=== PATIENT | female | born 1945 | race Asian ===

== ENCOUNTER → 2016-11-30 | Outpatient (CLI) | payer MEDICARE, OTHER ==
[~2016-11-30] MED LIST: ASPIRIN81 M2 PEG; ASPIRIN81 M2 PO; CALCIUM GUMMIE1 EACH PO; CALCIUM500 MG PO; OMEPRAZOLE40 M1 PO; PRILOSEC PO; SUCRALFATE1 G/10 ML PO; VIT E PO; VITAMIN D-32000 UNI2 PO; VITAMIN D3 PO
--- NOTE | ~2016-11-30 | CR150 ---
[facility] A Service of [facility] & [facility] RADIOLOGY TEXT RESULTS PATIENT: LOIS PARADA LOCATION: [facility] : [birth year] UNIT #: [id number] AGE: [address]: Bala Rod MD SEX: F ORDER DR: [id number] [facility] [address]. [place], [place] [address] [id number] O MR#: [id number] Acc #: [id number] NAME: LOIS PARADA : 1945 SEX: F STUDY DATE/TIME: 11/30/2016 11:31 UNIT: [facility] ROOM: STUDY DESCRIPTION: CR Hip Min 2 Views Lt Attending Physician: Bala Rod M.D. Referring Physician: Bala Rod M.D. Ordering Physician: Bala Rod M.D. Primary Care Physician: Bandar Lewis D.O. MEDICAL IMAGING REPORT This report is preliminary unless electronic signature is present EXAM Left hip, 11/30/2016 INDICATION 71-year-old female with pain in the left leg and weakness. History of breast cancer. TECHNIQUE 2 views of the left hip. No comparisons FINDINGS There is mild degenerative change of the left hip. No acute fracture. No suspicious bone lesion. IMPRESSION Mild degenerative change of the left hip, otherwise negative. Dictated by... Blue Wei M.D. THIS IS AN ELECTRONICALLY VERIFIED REPORT Blue Wei M.D. at 12/01/2016 7:43 AM Jazmyne TD: 11/30/2016 21:28 JOB #: [id number] MEDICAL IMAGING REPORT COPY
--- NOTE | ~2016-11-30 | CR181 ---
[facility] A Service of [facility] & [facility] RADIOLOGY TEXT RESULTS PATIENT: LOIS PARADA LOCATION: [facility] : 47 UNIT #: [id number] AGE: [address]: Bala Rod MD SEX: F ORDER DR: [id number] [facility] [address]. [place], [place] [address] [id number] O MR#: [id number] Acc #: [id number] NAME: LOIS PARADA : 1945 SEX: F STUDY DATE/TIME: 11/30/2016 11:30 UNIT: [facility] ROOM: STUDY DESCRIPTION: CR Lumbar Spine 2 or 3 Views Attending Physician: Bala Rod M.D. Referring Physician: Bala Rod M.D. Ordering Physician: Bala Rod M.D. Primary Care Physician: Bandar Lewis D.O. MEDICAL IMAGING REPORT This report is preliminary unless electronic signature is present EXAM Lumbar series, 11/30/2016 INDICATIONS 71-year-old female with left hip and lumbar spine pain. Pain and weakness in the left leg. History of breast cancer. TECHNIQUE 3 views of the lumbar spine. No comparisons. FINDINGS Vertebral body heights and alignment are preserved. No acute fracture. There is mild degenerative disc disease at L5-S1 and mild facet arthropathy at L4-5 and L5-S1. IMPRESSION 1. Mild degenerative changes, otherwise, negative. Dictated by... Blue Wei M.D. THIS IS AN ELECTRONICALLY VERIFIED REPORT Blue Wei M.D. at 12/01/2016 7:43 AM TERE/socrates TD: 11/30/2016 21:06 JOB #: [id number] MEDICAL IMAGING REPORT COPY
== END | disposition home or self-care (01) ==
LOC: CRAD 11:18
DX: M25.551 Pain in right hip (principal); M54.5 Low back pain; R53.1 Weakness; Z85.3 Personal history of malignant neoplasm of breast; M47.816 Spondylosis without myelopathy or radiculopathy, lumbar region; M16.12 Unilateral primary osteoarthritis, left hip
CPT/HCPCS: 72100; 73502

== ENCOUNTER → 2016-12-08 | Outpatient (CLI) | payer MEDICARE, OTHER ==
--- NOTE | ~2016-12-08 | US128 ---
[id number] [facility] [address]. [place], [place] [address] [id number] O MR#: [id number] [facility] #: [id number] NAME: LOIS PARADA : 1945 SEX: F STUDY DATE/TIME: 12/08/2016 14:41 UNIT: [facility] ROOM: STUDY DESCRIPTION: Thyroid Attending Physician: Jarrell Urrutia M.D. Ordering Physician: Jarrell Urrutia M.D. Primary Care Physician: Bandar Lewis D.O. MEDICAL IMAGING REPORT This report is preliminary unless electronic signature is present EXAM Thyroid ultrasound INDICATIONS Difficulty swallowing since August 2016. TECHNIQUE Carlos-scale and color Doppler sonographic images were obtained through the thyroid gland. FINDINGS Right lobe measures 3.2 x 1.0 x 1.1 cm, left lobe measures 3.5 x 1.0 x 1.0 cm, isthmus measures about 2 mm in thickness. The patient is noted to have a probable cyst within the right lobe of the thyroid gland measuring 3 x 2 x 3 mm. Overall, I think thyroid parenchyma is fairly heterogeneous. No definite discrete nodules are seen within the left lobe of the thyroid gland. There is a cystic-appearing structure which is seen inferior to the left lobe of the thyroid gland. It is hypoechoic in appearance with some increased through-transmission and there is no color Doppler flow within it and may reflect some sort of cyst. IMPRESSION Overall heterogeneous thyroid parenchyma. Patient is suspected to have a small cyst within the right lobe of the thyroid gland, but no definite solid nodules are appreciated. Dictated by... Emily Gonsalez M.D. THIS IS AN ELECTRONICALLY VERIFIED REPORT Emily Gonsalez M.D. at 12/09/2016 4:19 PM AFF/psc TD: 12/08/2016 21:24 JOB #: [id number] MEDICAL IMAGING REPORT COPY
--- NOTE | ~2016-12-08 | CT114 ---
[facility] A Service of [facility] RADIOLOGY TEXT RESULTS PATIENT: LOIS PARADA LOCATION: [facility] : 46 UNIT #: [id number] AGE: [address]: Jarrell Urrutia MD SEX: F ORDER DR: [id number] [facility] [address] [place], [place] [address] [id number] O MR#: [id number] Acc #: [id number] NAME: LOIS PARADA. : 1945 SEX: F STUDY DATE/TIME: 12/08/2016 15:21 UNIT: [facility] ROOM: STUDY DESCRIPTION: CT Soft Tissue Neck W Cont Attending Physician: Jarrell Urrutia M.D. Ordering Physician: Jarrell Urrutia M.D. Primary Care Physician: Bandar Lewis D.O. MEDICAL IMAGING REPORT This report is preliminary unless electronic signature is present EXAM Soft tissue neck CT with contrast. DATE OF EXAM 12/08/2016 COMPARISON 09/10/ CLINICAL HISTORY Persistent dysphagia, history of connective tissue disorder. Symptoms since August 22, 2016. TECHNIQUE NOTE: This CT exam was performed with one or more of the following radiation dose reduction techniques: automatic exposure control, adjustment of mA and/or kV according to patient size, and iterative reconstruction. FINDINGS The base of the brain is unremarkable. The parotid and submandibular salivary glands are slightly hyperdense and hyperenhancing. In the lower cervical soft tissues, there is extensive fat plane obscuration and linear infiltration clearly worsened since the prior study. In the upper mediastinum, similar changes are seen also showing progression since the prior study. The esophagus is fairly uniformly thickened. There is no abnormal fluid collection. There are mildly prominent mediastinal lymph nodes slightly increased since the prior study. There is severe attenuation of, but not occlusion of the left internal jugular vein. The carotid bifurcations appear normal as to the upper cervical internal carotids. The orbital soft tissues are unremarkable. [facility] A Service [facility] RADIOLOGY TEXT RESULTS PATIENT: LOIS PARADA LOCATION: [facility] : [birth year] UNIT #: [id number] AGE: [address]: Jarrell Urrutia MD SEX: F ORDER DR: There is a large right pleural effusion. There is some spinal degenerative change but no bone erosion or destruction. IMPRESSION 1. Findings show progression since the CT examination of 09/10/2016. Persistent lower cervical and mediastinal linear fatty infiltration and obscuration of fat planes and thickening of the esophagus. There is attenuation of, but not occlusion of the left internal jugular vein. It is probably not substantially changed since the prior study. 2. There is no discrete mass, and while the esophagus is thickened. There is no evidence of abnormal discrete fluid collection or air collection to suggest any form of perforation. 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 3. There is a large right pleural effusion but the lung apices are otherwise normal. Dictated by... Jim Scott M.D. THIS IS AN ELECTRONICALLY VERIFIED REPORT Jim Scott M.D. at 12/13/2016 5:05 PM KAE/rigoberto TD: 12/10/2016 19:03 JOB #: [id number] MEDICAL IMAGING REPORT COPY
[2016-12-08 15:43] LABS: POC - CREATININE 0.74 mg/dL (0.44-1.03); POC - GFR >60.0 mL/min (>60)
== END | disposition home or self-care (01) ==
LOC: CCAT 14:06
PROVIDERS: Surgery
DX: R13.10 Dysphagia, unspecified (principal); K22.8 Other specified diseases of esophagus; J90 Pleural effusion, not elsewhere classified
CPT/HCPCS: 70491; 76536; 82565; Q9967

== ENCOUNTER 2016-12-31 16:29 | Inpatient (IN) | payer MEDICARE, OTHER ==
--- NOTE | ~2016-12-31 | DS ---
Unit #: [id number] #: [id number] Patient: LOIS PARADA [id number] [facility] [address]. [place], [place] [address] [id number] I MR#: [id number] NAME: LOIS PARADA. ROOM: 469 Age: 72 Sex: F Admission Date: 12/31/2016 : 1945 Discharge Date: 01/08/2017 Attending Physician: Twan Chaney M.D. Primary Care Physician: Bandar Lewis D.O. DISCHARGE SUMMARY DISCHARGE DIAGNOSES 1. Dysphagia status post percutaneous gastrostomy tube placement. 2. Constipation. 3. Postop urinary retention. 4. Strep throat. HOSPITAL COURSE The patient is a 71-year-old female who presented to [facility] secondary to some trouble swallowing. The patient had an EGD on 10/07/16 by [facility] that showed some esophageal stenosis. She had dilatation and was found to have some hardness to her esophagus and so a referral was placed to Dr. Urrutia. EGD on 11/18/16 showed thickening of her esophagus which was concerning for possible scleroderma. She apparently had some difficulty with getting an appointment with Rheumatology and represented to the emergency department with dysphagia and was completely unable to eat or drink anything. The patient was seen by [facility] and taken for PEG placement given her inability to eat. She was maintained briefly on TPN but is now tolerating tube feeds without difficulty. Laboratories regarding her rheumatologic diagnosis have been sent but are pending. The patient had some postop urinary retention and complained of dysuria. Placement of a Piper revealed 800 mL of urine retained despite a bladder scan showing only 84. The patient was seen by Urology and is being discharged home with a Piper and followup. During a workup in the emergency department, the patient was swabbed and noted to be strep positive and has been treated with Rocephin during this stay. Additionally, the patient had some problems with constipation which have now resolved. She had a bowel movement the morning of discharge. DISCHARGE MEDICATIONS 1. Aspirin 81 mg daily per PEG tube. 2. Tube feeds. FOLLOWUP The patient should follow up with Dr. Jarrell Urrutia on 01/13/17 at 3 p.m. Dictated by... Twan Chaney M.D. Unit #: [id number] #: [id number] Patient: LOIS PARADA SOPHIA/janna TD: 01/10/2017 07:45 JOB #: [id number] DISCHARGE SUMMARY Page 1 of 1 X Twan Chaney MD X DISCHARGE SUMMARY
--- NOTE | ~2016-12-31 | CO ---
Unit #: [id number] #: [id number] Patient: LOIS PARADA [id number] [address] [place], [place] [address] [id number] I MR#: [id number] NAME: LOIS PARADA ROOM: 469 Age: 72 Sex: F Admission Date: 12/31/2016 : 1945 Attending Physician: Twan Chaney M.D. Primary Care Physician: Bandar Lewis D.O. Consultation Date: 01/06/2017 CONSULTATION REPORT REASON FOR CONSULTATION Dysuria. HISTORY OF PRESENT ILLNESS This 71-year-old woman who had an open gastrostomy tube placed 2 days ago and she has developed a complaint of dysuria. Urinalysis is normal. Bladder scan failed to show large residual. On the other hand, abdominal examination showed obvious tender bladder distention despite the patient's discordant history. With further questioning, she has been having small frequent urinations today. She has never had urologic problem. She does get up about 3 times at night and has some frequency and urgency, but has never recognize this as a problem. She has large volume voids. No history of gross hematuria or stone disease and has had only 2 urinary tract infections in her life. 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 PAST MEDICAL HISTORY Esophageal stenosis associated with GE reflux, possible scleroderma, history of breast cancer. PAST SURGICAL HISTORY Esophageal dilation, gastrostomy tube, left mastectomy in 1996, cataracts, hysterectomy, colonoscopy. MEDICATIONS Admission medications; omeprazole, vitamin D, low-dose aspirin, calcium, and vitamin E. ALLERGIES Doxycycline caused lip swelling. FAMILY HISTORY Positive for hypertension. SOCIAL HISTORY Negative other than the above. PHYSICAL EXAMINATION GENERAL: The patient is of short stature, lying in bed, alert, relatively Unit #: [id number] #: [id number] Patient: LOIS PARADA comfortable until examination of the lower abdomen reveals tender, distention. /RECTAL: Piper catheter inserted with sterile technique for residual urine of 800 mL of clear yellow urine providing relief. Digital exam normal; post hysterectomy, cervix and uterus surgically absent. No adnexal masses or tenderness. Good support. EXTREMITIES: No edema. NEURO: Intact. DIAGNOSTIC STUDIES LABORATORY RESULTS: Normal urinalysis. Creatinine 0.7. IMPRESSION 1. Postoperative urinary retention with no clear pre-existing voiding difficulties. 2. Acute bladder distention best treated with ideally 3 days of bladder drainage. PLAN We will recommend she be discharged with her catheter to remove it at home herself Tuesday and to follow up with us on an as-needed basis. Thank you, Dr. Trent, for the consultation. Dictated by... Bandar Vines M.D. CEDRICK/samuel TD: 01/07/2017 00:45 JOB #: [id number] CONSULTATION REPORT Page 1 of 1 X Bandar Vines MD X CONSULTATION REPORT
--- NOTE | ~2016-12-31 | CO ---
Unit #: [id number] #: [id number] Patient: LOIS PARADA [id number] [address] [place], [place] [address] [id number] I MR#: [id number] NAME: LOIS PARADA. ROOM: 469 Age: 71 Sex: F Admission Date: 12/31/2016 : 1945 Attending Physician: Twan Chaney M.D. Primary Care Physician: Bandar Lewis D.O. Consultation Date: 01/03/2017 CONSULTATION REPORT REASON FOR CONSULTATION Evaluate for possible gastrostomy tube. HISTORY OF PRESENT ILLNESS Thank you very much for asking us to see Ms. Parada. She is a 71-year-old female who has a history of carcinoma of the left breast status post left mastectomy in 1996 and a history of acid reflux. She has a history of worsening dysphagia. She had upper endoscopy performed on October [address] Kraft. She was found to have esophageal stenosis and had dilatation for 5 to 10 cm segment. She was referred to Dr. Jarrell Urrutia of thoracic surgery. Repeat upper endoscopy on 11/18/2016 revealed the patient to have thickening of her upper esophagus. It was felt that she may have some sort of intrinsic esophageal wall pathology. She was scheduled to see a cup trimming machine operator/unit aide tech but has not been seen yet. The patient has had worsening dysphagia. Before she only had problems with solids. Now she has problems with solids and liquids. She has trouble with her own saliva. She presents at this time for further evaluation. PAST MEDICAL HISTORY 1. Progressive dysphagia. 2. GERD. 3. History of left breast cancer. PAST SURGICAL HISTORY 1. Left mastectomy. 2. Hysterectomy. 3. Left cataract surgery. 4. Colonoscopy. 5. D/C. 6. EGD. SOCIAL HISTORY No tobacco or alcohol use. ALLERGIES Doxycycline. MEDICATIONS Please see med rec sheet. FAMILY HISTORY Hypertension. Unit #: [id number] #: [id number] Patient: LOIS PARADA REVIEW OF SYSTEMS Negative except for above. IMMUNIZATIONS Status unknown. PHYSICAL EXAMINATION GENERAL APPEARANCE: Well-developed, well-nourished female in no apparent distress. NECK: Supple. No thyromegaly or adenopathy. BACK: No CVA or spinous tenderness. ABDOMEN: Flat, soft, nontender. DIAGNOSTIC STUDIES LABORATORY: CMP is normal. White count 5.6, with a hemoglobin of 11.5 and hematocrit 35.2, platelet count is 236,000. IMPRESSION A 71-year-old female with progressive dysphagia. She needs a gastrostomy tube for nutritional support and bypass feeds. We have discussed the case with Dr. Kraft and he will proceed with upper endoscopy, possible PEG tube placement, possible open gastrostomy tube placement. All the risks and benefits have been fully explained to the patient in detail including the risk of bleeding, infection, esophageal or gastric perforation, intraabdominal injury, , transfer, additional surgery and other risks. She understands and requests that Dr. Kraft proceed. Dictated by... Karan Bates M.D. EDI/latisha TD: 01/03/2017 16:35 JOB #: [id number] CC: [facility] Jarrell Urrutia M.D. CONSULTATION REPORT Page 1 of 1 X Karan Bates MD X CONSULTATION REPORT
--- NOTE | ~2016-12-31 | CR63 ---
[facility] A Service of [facility] & [facility] RADIOLOGY TEXT RESULTS PATIENT: LOIS PARADA LOCATION: [place] [address] : [birth year] UNIT #: [id number] AGE: [address]: Twan Chaney MD SEX: F ORDER DR: [id number] [facility] [address] [place], [place] [address] [id number] I MR#: [id number] Acc #: [id number] NAME: LOIS PARADA : 1945 SEX: F STUDY DATE/TIME: 01/06/2017 7:42 UNIT: [facility] ROOM: [facility], [facility] STUDY DESCRIPTION: CR Chest 2 View Attending Physician: Twan Chaney M.D. Ordering Physician: Migdalia Cortes A.P.R.N. Primary Care Physician: Bandar Lewis D.O. MEDICAL IMAGING REPORT This report is preliminary unless electronic signature is present EXAM Chest, PA and lateral, 01/06/2017. HISTORY Shortness of breath and cough since 12/31/2016. Follow up right pleural effusion. History of left breast carcinoma and mastectomy. FINDINGS The cardiac and mediastinal structures are stable compared with 01/05/2017. Right arm approach PICC line is unchanged. Right pleural effusion with infiltrate or atelectasis right lower lobe unchanged. The lungs are otherwise clear. No pneumothorax. IMPRESSION No interval change compared with 01/05/2017. Dictated by... Kashmir Fernandez M.D. THIS IS AN ELECTRONICALLY VERIFIED REPORT Kashmir Fernandez M.D. at 01/07/2017 8:04 AM EMILY/sudhir TD: 01/06/2017 09:49 JOB #: [id number] MEDICAL IMAGING REPORT Page 1 of 1 COPY
--- NOTE | ~2016-12-31 | FU ---
[facility] Nutrition Therapy DATE: 01/06/17 Patient: LOIS F TAL Physician: MOISESPRAN Address: [address] [place] [address] Room/Bed: [address] [place] [address], Zip: [place] [address] Admit Date: 12/31/16 Date of : [birth year] Height: 4 8 Weight: 93 42.5 NUTRITION MONITORING/FOLLOW-UP: Reason: TF Follow-up Anthropometrics: Ht: 4'8" Adm wt: 42.3 kg (93#) BMI: 20.9 *No current wt in [employer] Labs: Gluc 121, POC 149 Meds: Phenergan, Protonix, Novolog I&O's: 5474/3920, last BM 12/29 Skin: Dry skin (generalized), closed surgical incision (mid/R abd) Edema: Abd (generalized) Estimated Nutrition Needs: 6261-9523 kcal (25-30 kcal/kg) 51-63 g protein (1.2-1.5 g/kg) Assessment: Chart reviewed, events noted. Pt reports feeling weak today. Per surgery note, TPN has been d/c'd and had PEG placement 01/04/17. Enteral nutiriton was initiated yesterday (01/05/17). Pt is currently receiving enteral nutrition with Jevity 1.5 at goal of 35 mL/hr. Per pump history, pt received 65% of goal volume x 24 hrs. Per surgery, pt is tolerating enteral nutrition. See recommendations below. Dx: Swallowing difficulty RT PMH, current clinical condition AEB dysphagia, need for alternative nutrition support. -ACTIVE Intervention: 1. Enteral nutriton 2. TPN d/c'd Monitoring, Evaluation and Goals: 1. Enteral nutrition; provide >80% of estimated needs and goal volume x 24 hrs 2. Weight; prevent unintentional weight loss 3. Labs; WNL: gluc Recommendations: 1. Continue enteral nutrition with Jevity 1.5 @ goal rate of 35 mL/hr. This will provide 1260 kcal/ 54 g protein/ 638 mL free H2O. Continue free h20 flushes per [facility] Nutrition Therapy DATE: 01/06/17 Patient: LOIS PARADA Physician: MOISESPRAN Address: [address] [place] [address] Room/Bed: [facility] [place] [address], Zip: [place] [address] Admit Date: 12/31/16 Date of : [birth year] Height: 4 8 Weight: 93 42.5 2. Once medically feasible, advance diet per PROGRAM LEAD + 6 small meals. 3. Please obtain weights q 2 days for weight monitoring purposes. 4. Optimize pt's bowel regimen d/t pt's last BM 12/29. Status: Pt is mild-moderate nutritional risk. RD will f/u per protocol. Respectfully, Abby Santana, Carroting Machine Offbearer Tre Butler MS, RD, LD Food and Nutritional Services [facility] cc: client file
--- NOTE | ~2016-12-31 | CR63 ---
[facility] A Service of [facility] & [facility] RADIOLOGY TEXT RESULTS PATIENT: LOIS PARADA LOCATION: [place] [address]- : [birth year] UNIT #: [id number] AGE: [address]: Twan Chaney MD SEX: F ORDER DR: [id number] [facility] [address] [place], [place] [address] [id number] I MR#: [id number] Acc #: [id number] NAME: LOIS PARADA. : 1945 SEX: F STUDY DATE/TIME: 01/02/2017 8:58 UNIT: [facility] ROOM: [facility] STUDY DESCRIPTION: CR Chest 2 View Attending Physician: Tanja Melo M.D. Ordering Physician: Uri Maxwell M.D. Primary Care Physician: Bandar Lewis D.O. MEDICAL IMAGING REPORT This report is preliminary unless electronic signature is present EXAM Two-view chest INDICATION Dysphagia and cough for 5 months. Increasing severity. FINDINGS PA and lateral views of the chest compared to CT chest dated 01/01/2017. There is a right PICC terminating over the SVC. Heart and mediastinal contours are unchanged. There is a small right pleural effusion. No pneumothorax. IMPRESSION Small right pleural effusion is unchanged. Right PICC terminates over the SVC. Dictated by... Ousmane Rodriguez M.D. THIS IS AN ELECTRONICALLY VERIFIED REPORT Ousmane Rodriguez M.D. at 01/03/2017 2:10 PM AMANUEL/wilber TD: 01/02/2017 17:42 JOB #: [id number] MEDICAL IMAGING REPORT Page 1 of 1 COPY
--- NOTE | ~2016-12-31 | A ---
[facility] Nutrition Therapy DATE: 01/03/17 Patient: LOIS Louie TAL Physician: MOISESPRAN Address: [address] [place] [address] Room/Bed: [address] [place] [address], Zip: [place] [address] Admit Date: 12/31/16 Date of : [birth year] Height: 4 8 Weight: 93 42.5 NUTRITIONAL ASSESSMENT: REASON: TPN 71 yo female admitted for dysphagia PMH: dysphagia, GERD, breast cancer, esophegeal stenosis s/p dilation (10/19) Anthropometrics: Ht: 4'8" Wt: 42.3 kg (93#) BMI: 20.9 Labs: Gluc 180, Phos 2.1, POC 140 Meds: Protonix, Novolog, Mg, K, MVI I/O & Bowel function: 1630/901, last BM 12/29 Skin Integrity: Dry skin (generalized) Edema: R hand (generalized) Estimated Nutrition Needs: 8066-7302 kcal (25-30 kcal/kg) 51-63 g protein (1.2-1.5 g/kg) Assessment: Chart reviewed, events noted. Pt has been experiencing dysphagia since 2006. Pt reported being unable to eat or drink since 12/29 (6 days). Pt reports having a good appetite and eating everything before 12/29. Pt states wt loss, but also UBW is ~92-93#. Pt is currently receiving TPN of 25% dextrose, 5% AA @ 40 mL/hr + 20% 250 mL lipids q 72 hrs. TPN is not indicated for this pt d/t functioning GI. PEG may be better for alternative nutrition support. See recommendations below. Dx: Swallowing difficulty RT PMH, current condition AEB dysphagia, need for alternative nutrition support. Intervention: 1. Alternative nutrition support Monitoring, Evaluation and Goals: 1. Alternative nutrition; provide >80% of estimated needs and goal volume x 24 hrs 2. Labs; WNL: gluc 3. Weight; prevent unintentional weight loss Recommendations: [facility] Nutrition Therapy DATE: 01/03/17 Patient: LOIS Louie TAL Physician: KIRSTEN Address: [address] [place] [address] Room/Bed: [address] [place] [address], Zip: [place] [address] Admit Date: 12/31/16 Date of : [birth year] Height: 4 8 Weight: 93 42.5 1. Recommend to d/c TPN. Wean TPN per pt tolerance. 2. Once medically feasible, recommend to place PEG and begin alternative nutrition support of Jevity 1.5 @ 15 mL/hr, increase by 10 mL q 6 hrs to goal rate of 35 mL/hr + 150 mL free H2O flushes q 6 hrs. This will provide: 1260 kcal/ 54 g protein/ 638 mL free H2O. 3. Once dysphagia is resolved, advance diet as tolerated per PROFESSOR OF GRAPHIC DESIGN. Pt is at a moderate nutritional risk. RD will f/u per protocol. Respectfully, Abby Santana, Ticket Sales Agent Tre Butler MS, RD, LD [facility] cc: client file
--- NOTE | ~2016-12-31 | HP ---
Unit #: [id number] #: [id number] Patient: LOIS PARADA [id number] [address] [place], [place] [address] [id number] I MR#: [id number] NAME: LOIS PARADA. ROOM: 91104 Age: 71 Sex: F Admission Date: 12/31/2016 : 1945 Attending Physician: Uri Maxwell M.D. Primary Care Physician: Bandar Lewis D.O. HISTORY AND PHYSICAL CHIEF COMPLAINT Dysphagia. DISCUSSION This is a 71-year-old female who has a history of carcinoma of left breast, status post left mastectomy in 1996, history of acid reflux. She has been having progressive dysphagia. She eventually had an EGD on October 07, 2016 by [facility]. She was found to have esophageal stenosis. She had a dilatation and found to have also hardness between 15 to 20 cm area and then she was given referral to see Dr. Jarrell Urrutia and she had a repeat EGD on 11/18/16 with biopsy and found to have also thickening of upper esophagus. There was suspicion of some rheumatological (1) tissue disease versus the scleroderma. She was also supposed to see Rheumatology but she has not seen so far. She presented to the emergency room with chief complaint of having dysphagia since Tuesday, unable to swallow or eat and she has been admitted for dysphagia though she denied chest pain. She denies nausea and vomiting, fever and chills, cough or other complaint. PAST MEDICAL HISTORY 1. History of progressive dysphagia with history of esophageal stenosis status post dilatation in October 2016. 2. History of narrowing of esophagus, thickening of upper esophagus, upper portion, status post EGD on 11/18/[address] Jarrell Urrutia. 3. History of GERD. 4. History of carcinoma of left breast with previous mastectomy in 1996. PAST SURGICAL HISTORY 1. History of left mastectomy. 2. Hysterectomy. 3. Left cataract surgery. 4. Colonoscopy. 5. D/C. 6. EGD. SOCIAL HISTORY She does not smoke. She does not drink alcohol. No other illicit drug use. ALLERGIES Doxycycline which causes lip swelling. Unit #: [id number] #: [id number] Patient: LOIS PARADA HOME MEDICATIONS Medications from home are followin. Omeprazole 40 mg daily. 2. Vitamin D3 2000 international units daily. 3. Aspirin 81 mg daily. 4. Calcium one tablet daily. 5. Vitamin E one tablet daily. FAMILY HISTORY Father has a history of hypertension, otherwise no history of cancer in the cancer. REVIEW OF SYSTEMS All review of systems negative except as in history of presenting illness. PHYSICAL EXAMINATION GENERAL: On examination middle-aged female lying in the bed comfortably, currently not in any distress. On general examination is alert, awake, oriented x3, comfortable, not in any distress. VITAL SIGNS: Current vitals are following: Temperature 98.2. Heart rate 87. Respiratory rate 16. Blood pressure 143/94. Oxygen 99% on room air. HEENT: On HEENT examination pupils equally react to light and accommodation. Head is normocephalic and atraumatic. NECK: Supple. No JVD. HEART: S1, S2, regular rate and rhythm. ABDOMEN: Soft, nontender and nondistended. Bowel sounds positive. EXTREMITIES: Inspection normal. No cyanosis. No clubbing. No edema. NEUROLOGIC: No focal neurologic deficit. DIAGNOSTIC STUDIES LABORATORY: Workup is following: Sodium 141, potassium 4, chloride 106, glucose 74, BUN 24, creatinine is 1, white count is 6, hemoglobin 13, hematocrit 42, platelet is 294. Flu is negative. Strep is positive. ASSESSMENT AND PLAN 1. Progressive dysphagia with a history of narrowing of esophagus, upper portion. Will do the hematology workup, VINICIUS, anti-VINICIUS and rheumatoid factor and also ask Dr. Jarrell Urrutia to see her. 2. Positive strep: Will place the patient on IV Rocephin. 3. History of acid reflux. 4. History of carcinoma of the left breast with previous left mastectomy. 5. DVT prophylaxis: Will place the patient on Lovenox. Dictated by Nicanor Prasad TD: 12/31/2016 21:57 JOB #: [id number] Unit #: [id number] #: [id number] Patient: LOIS PARADA HISTORY AND PHYSICAL Page 1 of 1 X X HISTORY AND PHYSICAL
--- NOTE | ~2016-12-31 | OR ---
Unit #: [id number] #: [id number] Patient: LOIS PARADA [id number] [address] [place], [place] [address] [id number] I MR#: [id number] NAME: LOIS PARADA ROOM: 469 Date of Procedure: 01/04/2017 Admission Date: 12/31/2016 Surgeon: Nick Kraft Jr., M.D. : 1945 Attending Physician: Twan Chaney M.D. Primary Care Physician: Bandar Lewis D.O. OPERATIVE REPORT INDICATIONS FOR PROCEDURE The patient is a 71-year-old white female, who has developed some severe esophageal stenosis and inflammation in the proximal to mid esophagus, which appears to be benign by biopsies. She has had a known past history for breast cancer. It was felt that in view of the fact she is unable to eat and swallow and actually has problems with her own saliva. It was felt she needed a gastrostomy tube placed. It was felt that an attempt at a percutaneous gastrostomy tube placement would be the best for her and if this was not accomplishable, would convert her to an open gastrostomy. She is brought to the operating room at this time for this procedure. She understands the procedure including the risks, including that of infection, intraabdominal organ injury, leaks and bleeding, and consents. PREOPERATIVE DIAGNOSES Unable to eat, maintain nutrition with severe esophageal stenosis. POSTOPERATIVE DIAGNOSES Unable to eat, maintain nutrition with severe esophageal stenosis, noting significant proximal esophageal stenosis. ANESTHESIA General with endotracheal intubation. PROCEDURES PERFORMED Attempted esophagogastroduodenoscopy with percutaneous endoscopic placed gastrostomy followed by open gastrostomy conversion. DESCRIPTION OF PROCEDURE The patient was positioned in the supine position. After being anesthetized, the Olympus XQ scope was passed in the pharynx and down into the proximal esophagus, there was significant stenosis. A 12 mm balloon dilator was placed and slowly inflated up to 12 mm and there was significant resistance in attempts at moving the dilator once it was inflated. It was deflated. There was no evidence of any perforation or significant bleeding and attempts to again passing the EGD scope were unsuccessful. The scope was removed. The patient was prepped and draped in routine fashion for placement of open gastrostomy. A small paramedian incision was made approximately 3 inches in length and the left upper quadrant was carried down through subcutaneous tissue to the fascia and the anterior rectus sheath was then scored with Bovie cautery. Posterior rectus sheath was then opened with the #10 blade scalpel between 2 hemostats. Upon opening the peritoneal cavity, there was no free Unit #: [id number] #: [id number] Patient: LOIS PARADA intra-abdominal fluid. In this area, two 2-0 silk pursestrings were placed in preparation for placement of gastrostomy tube. A small incision was made in the left lateral abdominal wall area and a Sayda clamp was then passed intraabdominal and then one back extraabdominal to be able to advance the Piper catheter into the abdomen. The tip of the Piper was then grasped and brought in and a gastrotomy was produced with the Bovie cautery and the tip of the tube was placed in the stomach and the pursestrings tied down. The stomach was brought up against the anterior abdominal wall after putting 6 mL of water in the catheter balloon and it was sutured to the anterior abdominal wall with several 2-0 silk sutures as routine with a Randi gastrostomy. After this was complete, the wound was irrigated. There was no evidence of any ongoing bleeding. The G-tube was irrigated and irrigated freely with good return and it was then re-plugged and at this point after hemostasis was again achieved, the posterior rectus sheath was closed with a continuous #1 Vicryl suture, anterior rectus sheath closed with interrupted #1 Vicryl suture. The wound was irrigated and the skin edges were then approximated with stainless-steel skin clips and skin stapling device. Sterile dressings were applied externally. Estimated blood loss less than 50 mL. The patient received less than 1000 mL crystalloid solution during the procedure. Sponges and instruments counts were correct x3. No drains were used. No complications. The patient was taken to the recovery room with stable vital signs in satisfactory condition. Dictated by... Nick Kraft Jr., M.D. JMB/samuel TD: 01/05/2017 00:10 JOB #: [id number] CC: Jarrell Urrutia M.D. OPERATIVE REPORT Page 1 of 1 X Nick Kraft MD PROCEDURE OPERATIVE NOTE
--- NOTE | ~2016-12-31 | CT55 ---
[facility] A Service of [facility] & [facility] RADIOLOGY TEXT RESULTS PATIENT: LOIS PARADA LOCATION: [place] [address] : [birth year] UNIT #: [id number] AGE: [address]: Twan Chaney MD SEX: F ORDER DR: [id number] [facility] [address] [place], [place] [address] [id number] I MR#: [id number] Acc #: [id number] NAME: LOIS PARADA : 1945 SEX: F STUDY DATE/TIME: 01/01/2017 11:53 UNIT: CEDOF ROOM: 21638 STUDY DESCRIPTION: CT Chest W Con Attending Physician: Tanja Melo M.D. Ordering Physician: Jarrell Urrutia M.D. Primary Care Physician: Bandar Lewis D.O. MEDICAL IMAGING REPORT This report is preliminary unless electronic signature is present EXAM CT chest HISTORY Short of air. Dysphagia since 12/30/2016. Prior history of left breast cancer. Thyroid disease. ENT, gastro, left mastectomy, hysterectomy, D and C. TECHNIQUE This CT exam was performed with one or more of the following radiation dose reduction techniques: automatic exposure control, adjustment of mA and/or kV according to patient size, and iterative reconstruction. FINDINGS CT of the chest performed. The patient received 70 mL Isovue 370 intravenously. Comparison 09/10/2016. Somewhat atrophic appearing thyroid. No focal abnormality is seen. No axillary adenopathy. Ill-defined tissue planes in the paratracheal region at thoracic inlet with generalized haziness and tissue hypodensity in the deep space fat. No fluid collection. No abnormal enhancement. Etiology unclear. This may represent chronic change. Similar appearance on a CT of the neck dated 09/10/2016. A component of acute inflammation is not excluded. Please correlate clinically. Right paratracheal dominant node measuring about 1.1 cm in short axis. Similar appearance on prior examination. There are smaller lymph nodes present as well. There is generalized haziness in the superior mediastinal fat and in the fat adjacent to the esophagus throughout its course. No esophageal enhancement. No localized marti esophageal fluid collection or free air. The heart is normal in size. Moderate right pleural effusion. No left pleural effusion, focal fatty infiltration in the liver adjacent to falciform ligament. Stable. Right hepatic lobe segment 8 cyst stable. Visualized gallbladder, spleen, pancreas, adrenal glands, and upper renal poles notable for stable right upper pole renal cyst. No upper abdominal adenopathy. The esophagus is STS. [facility] A Service of [facility] RADIOLOGY TEXT RESULTS PATIENT: LOIS PARADA LOCATION: [facility] 469-01 : [birth year] UNIT #: [id number] AGE: [address]: Twan Chaney MD SEX: F ORDER DR: diffusely abnormal. Diffuse esophageal wall thickening. This appears even more pronounced than on the study from 09/10/2016. Esophageal wall measures up to about 8.0 mm in thickness and as noted there is diffuse haziness in the paraesophageal fat. Findings concerning for moderate to severe diffuse esophagitis. This could be of infectious or inflammatory etiology. Consider further evaluation with endoscopy or contrast swallow. There is no indication of esophageal obstruction. The visualized stomach, small bowel and colon are unremarkable. Underlying emphysema. Atelectasis in the right lower lobe. There is no indication of pneumonia or pulmonary edema. No suspicious nodule. Haziness in the mediastinal fat. Pulmonary arteries grossly unremarkable. No aortic dissection. The thoracic aorta appears normal in caliber. Great vessel origins patent. Visualized aortic branch vessels patent. Bony structures unremarkable. IMPRESSION 1. The esophagus is diffusely abnormal. Diffuse abnormal thickening of the esophageal wall throughout its visualized extent. Esophageal wall measures up to about 8.0-9.0 mm in thickness. This is more pronounced than on the prior study from September 2016. In addition, there is abnormal haziness and fat stranding along the course of the esophagus in the paraesophageal fat. There is no paraesophageal/mediastinal air or drainable fluid collection. Findings most suggestive of severe esophagitis likely of an infectious or inflammatory nature. More pronounced than on prior study. Correlate with clinical risk factors. Consider further evaluation with endoscopy or contrast swallow. 2. Ill-defined haziness and hypodense material in deep soft tissue planes of the inferior hypopharynx without fluid collection. No enhancement or abnormal air collection. Appearance is probably related to the presumed acute esophagitis. Followup to resolution recommended. 3. Right paratracheal adenopathy presumed reactive in nature and related to esophagitis. Similar appearance in September 2016. 4. Haziness and stranding in the mediastinal fat predominately adjacent to the esophagus, presumed secondary to the esophageal inflammatory change. Correlate with any clinical concern for mediastinitis. There is no mediastinal air or fluid collection. 5. Moderate right pleural effusion. No left pleural effusion. 6. Emphysema. Mild atelectasis right lung base. Lungs otherwise clear. 7. No acute abnormality in upper abdomen. See incidental findings above. 8. Not mentioned in body of report, chronic changes of left mastectomy. Dictated by... Adalberto Martinez M.D. THIS IS AN ELECTRONICALLY VERIFIED REPORT Adalberto Martinez M.D. at 01/04/2017 6:08 PM [facility] A Service of [facility] & [facility] RADIOLOGY TEXT RESULTS PATIENT: LOIS PARADA LOCATION: [place] [address] : [birth year] UNIT #: [id number] AGE: [address]: Twan Chaney MD SEX: F ORDER DR: KEN/wilber TD: 01/02/2017 09:50 JOB #: [id number] MEDICAL IMAGING REPORT Page 1 of 1 COPY
--- NOTE | ~2016-12-31 | CO ---
Unit #: [id number] #: [id number] Patient: ZINA PARADA [id number] [facility] [address] [place], [place] [address] [id number] I MR#: [id number] NAME: ZINA PARADA. ROOM: 81182 Age: 71 Sex: F Admission Date: 12/31/2016 : 1945 Attending Physician: Tanja Melo M.D. Primary Care Physician: Bandar Lewis D.O. CONSULTATION REPORT REASON FOR CONSULT Dysphagia. HISTORY OF PRESENT ILLNESS Ms. Zina Parada is a 71-year-old female with history of dysphagia dating back to at least October of 2006 when she underwent an EGD by Dr. Kraft. On that EGD she was found to have some thickness of the esophagus with some sclerotic-like changes; however, he was not able to dilate her. She was evaluated by Dr. Jarrell Urrutia in our office, and on 11/18/16 she underwent EGD and once again was found to have thickening of the esophageal wall consistent with possible scleroderma. On physical examination she was also found to have firmness in the cervical region. She underwent a CT of the neck, which revealed a thickening of the esophageal wall, as well as some fatty infiltration of the mediastinum and cervical region. She was dilated minimally on 11/18/16 and was able to take a liquid diet. We had asked her to be set up with a car body inspector, but she has not been able to obtain that appointment just yet. It is in March of 2017. She presented on December 31, 2016 to [facility] after having a 3-day history of complete dysphagia with an inability to even swallow her saliva. She is afebrile. She denies any cough, fever, chills or night sweats, and she has not yet lost any weight. PAST MEDICAL HISTORY Breast cancer (1996) with mastectomy on the left, GERD. SURGICAL INTERVENTIONS Left mastectomy, hysterectomy, cataract on the left eye, colonoscopy and EGD x2. SOCIAL HISTORY She is a lifelong nonsmoker. She does not drink alcohol, and she does not use any illicit drugs. MEDICATIONS Her medications at home include multivitamin, vitamin D, omeprazole and vitamin E, but at present she is tolerating no p.o. medications. MEDICATION ALLERGIES Doxycycline (anaphylaxis). REVIEW OF SYSTEMS A 12-point review of systems was completed with positives noted in HPI. PHYSICAL EXAMINATION Unit #: [id number] #: [id number] Patient: ZINA PARADA VITAL SIGNS: Temperature is 98, heart rate 75, respiratory rate 18, blood pressure 119/72. GENERAL APPEARANCE: Ms. Parada is a well-groomed 71-year-old female who is a good historian regarding her own medical history. NEUROLOGIC/PSYCHIATRIC: Cranial nerves II-XII are intact. Speech is appropriate and clear, and she is congenial. NECK: Her neck has abnormal prominence in the left cervical region, which his extremely firm but not movable. RESPIRATORY: Lungs are clear, decreased in the right base. CARDIOVASCULAR: S1, S2 without rub, without murmur. ABDOMEN: Her abdomen is large, round, soft. Bowel sounds are positive. Nontender. No pulsatile masses or hepatosplenomegaly. No epigastric tenderness noted. EXTREMITIES: Her extremities are warm and dry. No clubbing or cyanosis noted. DIAGNOSTIC STUDIES LABORATORY: On 12/31/16 BUN 14, creatinine 1, sodium 141, potassium 3. WBC is 6.1, platelets 294, hemoglobin 13.6, hematocrit 42.3. IMAGING: CT of the neck on 12/2016 reveals continued fatty infiltration of the mediastinum, as well as the cervical region of the neck. IMPRESSION Dysphagia with esophageal stricture in the form of a esophageal wall thickening with scleroderma being in the differential diagnoses. Patient was scheduled to see a car body inspector, but that appointment has not yet occurred. Sudden onset this Tuesday, was unable to take any p.o. nourishment, including liquids. PLAN We are going to do a PICC line, TPN per pharmacy, CT of the chest with IV contrast, repeat labs tomorrow morning, ask for rheumatology consult on Tuesday and then possibly eventual G-tube placement, which we will ask Dr. Kraft for, but we will wait until Tuesday before placing that consult. Thank you very much for allowing us to participate in the care of this patient. If you have any questions, please do not hesitate to call. Dictated by... Migdalia Cortes A.P.R.N. for Jarred Brush M.D. LUDWIG/zoltan TD: 01/01/2017 10:42 JOB #: [id number] Unit #: [id number] #: [id number] Patient: ZINA PARADA CONSULTATION REPORT Page 1 of 1 X Migdalia Cortes APRN CONSULTATION REPORT
--- NOTE | ~2016-12-31 | CR72 ---
[facility] A Service of [facility] & [facility] RADIOLOGY TEXT RESULTS PATIENT: LOIS PARADA LOCATION: [place] [address] : [birth year] UNIT #: [id number] AGE: [address]: Twan Chaney MD SEX: F ORDER DR: [id number] [facility] [address] [place], [place] [address] [id number] I MR#: [id number] Acc #: [id number] NAME: LOIS PARADA : 1945 SEX: F STUDY DATE/TIME: 01/05/2017 4:40 UNIT: [facility] ROOM: [facility] STUDY DESCRIPTION: CR Chest Single View Portable Attending Physician: Twan Chaney M.D. Ordering Physician: Jarrell Urrutia M.D. Primary Care Physician: Bandar Lewis D.O. MEDICAL IMAGING REPORT This report is preliminary unless electronic signature is present EXAM Portable chest INDICATIONS Postop followup procedure future frontal view chest. COMPARISON 01/02/2017 FINDINGS Increasing right pleural effusion. No pneumothorax. Heart size stable. IMPRESSION Increasing right pleural effusion. Dictated by... Jorge Mckinley M.D. THIS IS AN ELECTRONICALLY VERIFIED REPORT Jorge Mckinley M.D. at 01/05/2017 10:24 PM Stephani TD: 01/05/2017 06:22 JOB #: [id number] MEDICAL IMAGING REPORT Page 1 of 1 COPY
[2016-12-31 14:07] LABS: INFLUENZA A NEG (NEG); INFLUENZA B NEG (NEG)
[2016-12-31 16:29] LABS: BASOPHIL% 0.7 % (0-2.5); EOSINOPHIL% 0.4 % (0.0-7.0); HEMATOCRIT 42.3 % (35.0-45.0); HEMOGLOBIN 13.6 gm/dL (12.0-16.0); LYMPHOCYTE# 1.4 X10e3 (1.0-3.5); LYMPHOCYTE% 22.9 % (17.0-45.0); MEAN CELL VOLUME 94.4 FL (83-96); MEAN CORPUSCULAR HEMOGLOBIN 30.4 PG (28-34); MEAN CORPUSCULAR HGB CONC 32.2 g/dL (30-36); MEAN PLATELET VOLUME 8.8 FL (6.5-11.5); MONOCYTE# 0.3 X10e3 (0-1.0); MONOCYTE% 4.4 % (3.0-12.0); NEUTROPHIL# 4.3 X10e3 (1.5-7.1); NEUTROPHIL% 71.6 % (40-75); PLATELET COUNT 294 X10e3 (140-420); RED BLOOD COUNT 4.48 X10e (3.90-5.30); RED CELL DISTRIBUTION WIDTH 13.7 % (11.0-15.5); WHITE BLOOD COUNT 6.1 X10e3 (4.0-10.5)
[2016-12-31 16:37] LABS: DIFF IND NO
[2016-12-31 16:57] LABS: CALCIUM SERUM 9.5 mg/dL (8.4-10.2); GLOM FILT RATE Estimated 57.1 mL/min (>60)
[2017-01-01 12:16] LABS: BASOPHIL# 0.1 X10e3 (0-0.3); BASOPHIL% 0.9 % (0-2.5); EOSINOPHIL% 0.5 % (0.0-7.0); LYMPHOCYTE# 1.4 X10e3 (1.0-3.5); LYMPHOCYTE% 26.4 % (17.0-45.0); MEAN CELL VOLUME 93.9 FL (83-96); MEAN CORPUSCULAR HEMOGLOBIN 30.6 PG (28-34); MEAN CORPUSCULAR HGB CONC 32.5 g/dL (30-36); MEAN PLATELET VOLUME 8.9 FL (6.5-11.5); MONOCYTE# 0.4 X10e3 (0-1.0); MONOCYTE% 7.5 % (3.0-12.0); NEUTROPHIL# 3.5 X10e3 (1.5-7.1); NEUTROPHIL% 64.7 % (40-75); PLATELET COUNT 219 X10e3 (140-420); RED BLOOD COUNT 4.26 X10e (3.90-5.30); RED CELL DISTRIBUTION WIDTH 13.4 % (11.0-15.5); WHITE BLOOD COUNT 5.4 X10e3 (4.0-10.5)
[2017-01-01 12:19] LABS: DIFF IND NO
[2017-01-01 12:41] LABS: ALBUMIN SERUM 3.9 g/dL (3.5-5.0); BILIRUBIN,TOTAL 0.7 mg/dL (0.2-2.0); BUN/CREATININE RATIO 27.5; CALCIUM SERUM 9.1 mg/dL (8.4-10.2); CREATININE SERUM 0.8 mg/dL (0.6-1.4); GLOM FILT RATE Estimated 74.8 mL/min (>60); POTASSIUM 4.6 mmol/L (3.5-5.1); PROTEIN TOTAL SERUM 8.2 g/dL (6.0-8.3)
[2017-01-02 05:14] LABS: BASOPHIL% 0.9 % (0-2.5); EOSINOPHIL# 0.1 X10e3 (0-0.7); EOSINOPHIL% 2.1 % (0.0-7.0); HEMATOCRIT 35.2 % (35.0-45.0); HEMOGLOBIN 11.5 gm/dL (12.0-16.0); LYMPHOCYTE# 1.2 X10e3 (1.0-3.5); LYMPHOCYTE% 21.3 % (17.0-45.0); MEAN CELL VOLUME 93.1 FL (83-96); MEAN CORPUSCULAR HEMOGLOBIN 30.5 PG (28-34); MEAN CORPUSCULAR HGB CONC 32.8 g/dL (30-36); MEAN PLATELET VOLUME 8.1 FL (6.5-11.5); MONOCYTE# 0.5 X10e3 (0-1.0); MONOCYTE% 8.6 % (3.0-12.0); NEUTROPHIL# 3.8 X10e3 (1.5-7.1); NEUTROPHIL% 67.1 % (40-75); PLATELET COUNT 236 X10e3 (140-420); RED BLOOD COUNT 3.78 X10e (3.90-5.30); RED CELL DISTRIBUTION WIDTH 12.9 % (11.0-15.5); WHITE BLOOD COUNT 5.6 X10e3 (4.0-10.5)
[2017-01-02 05:17] LABS: DIFF IND NO
[2017-01-02 09:02] LABS: ALBUMIN SERUM 3.6 g/dL (3.5-5.0); BILIRUBIN,TOTAL 0.5 mg/dL (0.2-2.0); CALCIUM SERUM 8.8 mg/dL (8.4-10.2); CREATININE SERUM 0.5 mg/dL (0.6-1.4); GLOM FILT RATE Estimated 98.1 mL/min (>60); MAGNESIUM 1.9 mg/dL (1.6-3.0); PHOSPHOROUS 1.7 mg/dL (2.5-4.6); POTASSIUM 3.9 mmol/L (3.5-5.1); PROTEIN TOTAL SERUM 7.3 g/dL (6.0-8.3)
[2017-01-03 04:36] LABS: CALCIUM SERUM 8.7 mg/dL (8.4-10.2); CREATININE SERUM 0.6 mg/dL (0.6-1.4); GLOM FILT RATE Estimated 92.4 mL/min (>60); MAGNESIUM 2.3 mg/dL (1.6-3.0); PHOSPHOROUS 2.1 mg/dL (2.5-4.6); POTASSIUM 3.5 mmol/L (3.5-5.1)
[2017-01-04 04:15] LABS: CALCIUM SERUM 8.4 mg/dL (8.4-10.2); CREATININE SERUM 0.6 mg/dL (0.6-1.4); GLOM FILT RATE Estimated 92.4 mL/min (>60); PHOSPHOROUS 2.9 mg/dL (2.5-4.6); POTASSIUM 3.5 mmol/L (3.5-5.1)
[2017-01-05 05:14] LABS: BASOPHIL% 0.1 % (0-2.5); HEMATOCRIT 32.1 % (35.0-45.0); HEMOGLOBIN 10.8 gm/dL (12.0-16.0); LYMPHOCYTE# 1.2 X10e3 (1.0-3.5); LYMPHOCYTE% 14.5 % (17.0-45.0); MEAN CELL VOLUME 91.1 FL (83-96); MEAN CORPUSCULAR HEMOGLOBIN 30.7 PG (28-34); MEAN CORPUSCULAR HGB CONC 33.7 g/dL (30-36); MEAN PLATELET VOLUME 8.5 FL (6.5-11.5); MONOCYTE# 0.6 X10e3 (0-1.0); MONOCYTE% 7.1 % (3.0-12.0); NEUTROPHIL# 6.6 X10e3 (1.5-7.1); NEUTROPHIL% 78.3 % (40-75); PLATELET COUNT 174 X10e3 (140-420); RED BLOOD COUNT 3.52 X10e (3.90-5.30); RED CELL DISTRIBUTION WIDTH 12.9 % (11.0-15.5); WHITE BLOOD COUNT 8.5 X10e3 (4.0-10.5)
[2017-01-05 05:19] LABS: DIFF IND NO
[2017-01-05 06:56] LABS: BUN/CREATININE RATIO 15.71; CALCIUM SERUM 8.8 mg/dL (8.4-10.2); CREATININE SERUM 0.7 mg/dL (0.6-1.4); GLOM FILT RATE Estimated 87.2 mL/min (>60); POTASSIUM 4.1 mmol/L (3.5-5.1)
[2017-01-05 23:03] LABS: ANA SCREEN Positive (Negative); ANA TITER COMMENT Has been added (()); NUCLEAR PATTERN (ANA) Speckled (())
[2017-01-06 02:57] LABS: BASOPHIL% 0.6 % (0-2.5); DIFF IND NO; EOSINOPHIL# 0.4 X10e3 (0-0.7); EOSINOPHIL% 4.6 % (0.0-7.0); HEMATOCRIT 33.4 % (35.0-45.0); HEMOGLOBIN 10.8 gm/dL (12.0-16.0); LYMPHOCYTE# 2.1 X10e3 (1.0-3.5); LYMPHOCYTE% 24.1 % (17.0-45.0); MEAN CELL VOLUME 92.8 FL (83-96); MEAN CORPUSCULAR HEMOGLOBIN 30.1 PG (28-34); MEAN CORPUSCULAR HGB CONC 32.4 g/dL (30-36); MONOCYTE# 0.7 X10e3 (0-1.0); NEUTROPHIL# 5.4 X10e3 (1.5-7.1); NEUTROPHIL% 62.7 % (40-75); PLATELET COUNT 180 X10e3 (140-420); RED CELL DISTRIBUTION WIDTH 13.3 % (11.0-15.5); WHITE BLOOD COUNT 8.6 X10e3 (4.0-10.5)
[2017-01-06 03:21] LABS: BUN/CREATININE RATIO 18.57; CALCIUM SERUM 8.6 mg/dL (8.4-10.2); CREATININE SERUM 0.7 mg/dL (0.6-1.4); GLOM FILT RATE Estimated 87.2 mL/min (>60); MAGNESIUM 2.1 mg/dL (1.6-3.0); POTASSIUM 3.9 mmol/L (3.5-5.1)
[2017-01-06 14:16] LABS: URINE SOURCE CLEAN CATCH
[2017-01-06 14:27] LABS: URINE APPEARANCE CLEAR; URINE BILIRUBIN NEG (NEG); URINE BLOOD NEG (NEG); URINE COLOR YELLOW; URINE GLUCOSE NEG (NEG); URINE KETONE NEG (NEG); URINE LEUKOCYTE ESTERASE NEG (NEG); URINE NITRATE NEG (NEG); URINE PROTEIN NEG (NEG); URINE SPECIFIC GRAVITY 1.008 (1.003-1.035); URINE UROBILINOGEN 0.2 MG/DL (NEG)
== END 2017-01-08 15:10 | disposition home health service (06) | DRG 328 ==
LOC: CED 16:29 → CEDOF 19:30 → C4C 01-02 14:45
PROVIDERS: Emergency Medicine; Family Medicine; Nurse Practitioner; Physician Assistant Medical; Surgery
PROC: 02HV33Z Insertion of Infusion Device into Superior Vena Cava, Percutaneous Approach (ICD-10-PCS; 2017-01-01)
PROC: 4A02X4A Measurement of Cardiac Electrical Activity, Guidance, External Approach (ICD-10-PCS; 2017-01-01)
PROC: 0DJ08ZZ Inspection of Upper Intestinal Tract, Via Natural or Artificial Opening Endoscopic (ICD-10-PCS; 2017-01-04)
PROC: 0DH60UZ Insertion of Feeding Device into Stomach, Open Approach (ICD-10-PCS; principal; 2017-01-04 07:30)
DX: R13.10 Dysphagia, unspecified (principal); N32.89 Other specified disorders of bladder; K21.9 Gastro-esophageal reflux disease without esophagitis; Z85.3 Personal history of malignant neoplasm of breast; Z90.710 Acquired absence of both cervix and uterus; Z98.42 Cataract extraction status, left eye; J02.0 Streptococcal pharyngitis; Z79.82 Long term (current) use of aspirin; K22.2 Esophageal obstruction; R33.8 Other retention of urine; N99.89 Other postprocedural complications and disorders of genitourinary system; R30.0 Dysuria; K59.00 Constipation, unspecified
CPT/HCPCS: 71010; 71020; 71260; 80048; 80053; 81003; 82947; 83735; 84100; 84478; 85025; 86038; 86039; 86235; 87804; 87880; 96360; 97161; 97165; 99285; C9113; G8978-GP; G8979-GP; G8980-GP; G8987-GO; G8988-GO; G8989-GO; J0330; J0610; J0696; J1650; J1815; J2250; J2270; J2405; J2550; J3010; Q9967